=== PATIENT | female | born 1990 | race Caucasian/White ===

== ENCOUNTER 2018-12-29 11:40 | Observation (INO) | payer MEDICAID ==
[~2018-12-29] VITALS: Ht 152.4 cm; Wt 63.5 kg
[~2018-12-29 11:40] MED LIST: ACET-6134 PO; PREN-385 PO
[2018-12-29 11:44] VITALS: BP 104/59
== END 2018-12-29 18:35 | disposition home or self-care (01) ==
LOC: MED 11:40 → MLD 11:56
PROVIDERS: ADMIT Obstetrics & Gynecology; ATTEND Obstetrics & Gynecology
DX: O26.892 Other specified pregnancy related conditions, second trimester (principal); R10.9 Unspecified abdominal pain; Z3A.23 23 weeks gestation of pregnancy
CPT/HCPCS: 36415; 76815; 85379; 99281; G0378; Q0092

== ENCOUNTER 2019-04-15 22:30 | Inpatient (IN) | payer MEDICAID ==
[~2019-04-15] VITALS: Ht 152.4 cm; Wt 74.8 kg
[~2019-04-15 22:30] MED LIST changes: -ACET-6134 PO
[2019-04-15 22:47] VITALS: BP 113/65
[2019-04-15] MEDS ORDERED: TERBUTALINE 1 MG/ML VIAL SUBQ ONE (23:25)
[2019-04-15] MEDS: TERBUTALINE 1 MG/ML VIAL SUBQ SCH (23:32)
[2019-04-15] MEDS: LACTATED RINGERS 1,000 ML IV SCH (23:33)
[2019-04-16] MEDS ORDERED: TERBUTALINE 1 MG/ML VIAL SUBQ ONE (00:06)
[2019-04-16] MEDS: TERBUTALINE 1 MG/ML VIAL SUBQ SCH (00:09)
[2019-04-16] MEDS: TERBUTALINE 2.5 MG TAB PO SCH ×4 (04:00→16:00)
[2019-04-16] MEDS ORDERED: FERR325E14 PO (05:39)
[2019-04-16] MEDS: LACTATED RINGERS 1,000 ML IV SCH ×3 (07:47→23:08)
--- NOTE | 2019-04-16 08:11 | NUR ---
PATIENT HAS BEEN SCREENED AND CATEGORIZED LOW NUTRITION RISK. PATIENT WILL BE SEEN WITHIN 7 DAYS OF ADMISSION. 04/22/[address]
[2019-04-16] MEDS ORDERED: NALBUPHINE 10 MG/ML AMP IVP SCH (09:35)
[2019-04-16] MEDS ORDERED: NALBUPHINE 10 MG/ML AMP ONE ×2 (09:56→19:44)
[2019-04-16] MEDS ORDERED: SODIUM PHOSPHATE 118 ML ENEM RC PRN (12:40)
[2019-04-16 14:00] LABS: BASOPHILS % (AUTO) 0.1 % (0.0-2.0); HEMATOCRIT 34.7 % (36-48); HEMOGLOBIN 11.2 g/dL (12.0-16.0); LYMPHOCYTES # (AUTO) 1.2 K/uL (2.5-16.5); LYMPHOCYTES % (AUTO) 9.4 % (20.5-51.1); MEAN CORPUSCULAR HEMOGLOBIN 26 pg (27-31); MEAN CORPUSCULAR HGB CONC 32 g/dL (33-37); MEAN CORPUSCULAR VOLUME 81.8 fL (80-94); MONOCYTES # (AUTO) 0.7 K/uL (0.8-1.0); MONOCYTES % (AUTO) 5.4 % (1.7-9.3); NEUTROPHILS # (AUTO) 10.9 K/uL (1.8-7.7); NEUTROPHILS % (AUTO) 85.1 % (42.2-75.2); PLATELET COUNT (AUTO) 166 K/uL (140-450); RED BLOOD CELL COUNT(AUTO) 4.24 MIL/uL (4.20-5.40); WHITE BLOOD COUNT (AUTO) 12.8 K/uL (4.8-10.8)
[2019-04-16] MEDS: NALBUPHINE 10 MG/ML AMP IVP PRN (19:49)
[2019-04-17] MEDS ORDERED: NALBUPHINE 10 MG/ML AMP ONE ×2 (03:26→09:29)
[2019-04-17] MEDS: NALBUPHINE 10 MG/ML AMP IVP PRN ×2 (03:41→09:30)
[2019-04-17] MEDS: LACTATED RINGERS 1,000 ML IV SCH ×2 (08:23→14:48)
[2019-04-17] MEDS ORDERED: MORPHINE SULFATE 10 MG/ML VIAL IVP PRN (11:30)
[2019-04-17] MEDS ORDERED: MORPHINE SULFATE 10 MG/ML VIAL ONE (11:48)
[2019-04-17] MEDS ORDERED: ROPIVACAINE 0.2%/NS PREMIX 100 ML EPI ONE ×2 (13:18→23:04)
[2019-04-18] MEDS ORDERED: OXYTOCIN 20 UNITS/LR PREMIX 1,000 ML IV ONE (07:30)
[2019-04-18] MEDS: LACTATED RINGERS 1,000 ML IV SCH (07:43)
[2019-04-18] MEDS ORDERED: OXYTOCIN 20 UNITS in LACTATED RINGERS 1,000 ML IV SCH ×2 (08:15→14:59)
[2019-04-18] MEDS ORDERED: OXYTOCIN 10 UNITS/ML VIAL ONE (11:15)
[2019-04-18] MEDS ORDERED: ROPIVACAINE 0.2%/NS PREMIX 100 ML EPI ONE (11:37)
[2019-04-18] MEDS ORDERED: BISACODYL 5 MG TABEC PO PRN (15:00)
[2019-04-18] MEDS ORDERED: MEASLES, MUMPS, AND RUBELLA 1 VIAL SQVAC PRN (15:00)
[2019-04-18] MEDS ORDERED: ACETAMINOPHEN 325 MG TAB PO PRN (15:00)
[2019-04-18] MEDS ORDERED: IBUPROFEN 600 MG TAB PO PRN (15:00)
[2019-04-18] MEDS ORDERED: DOCUSATE SODIUM 100 MG GELCAP PO PRN (15:00)
[2019-04-19 08:17] LABS: BASOPHILS % (AUTO) 0.2 % (0.0-2.0); EOSINOPHILS # (AUTO) 0.1 K/uL (0-0.4); HEMATOCRIT 29.2 % (36-48); HEMOGLOBIN 9.7 g/dL (12.0-16.0); LYMPHOCYTES # (AUTO) 2.2 K/uL (2.5-16.5); LYMPHOCYTES % (AUTO) 20.6 % (20.5-51.1); MEAN CORPUSCULAR HEMOGLOBIN 27 pg (27-31); MEAN CORPUSCULAR HGB CONC 33 g/dL (33-37); MEAN CORPUSCULAR VOLUME 81.9 fL (80-94); MONOCYTES % (AUTO) 9.6 % (1.7-9.3); NEUTROPHILS # (AUTO) 7.2 K/uL (1.8-7.7); NEUTROPHILS % (AUTO) 68.6 % (42.2-75.2); PLATELET COUNT (AUTO) 140 K/uL (140-450); RED BLOOD CELL COUNT(AUTO) 3.57 MIL/uL (4.20-5.40); WHITE BLOOD COUNT (AUTO) 10.5 K/uL (4.8-10.8)
== END 2019-04-20 15:25 | disposition home or self-care (01) | DRG 560 ==
LOC: OBSVTOIN 22:30 → MLD 22:30 → MFCC 04-18 20:00
PROVIDERS: ADMIT Obstetrics & Gynecology; ATTEND Obstetrics & Gynecology
PROC: 10E0XZZ Delivery of Products of Conception, External Approach (ICD-10-PCS; principal; 2019-04-18)
PROC: 10907ZC Drainage of Amniotic Fluid, Therapeutic from Products of Conception, Via Natural or Artificial Opening (ICD-10-PCS; 2019-04-18)
PROC: 00HU33Z Insertion of Infusion Device into Spinal Canal, Percutaneous Approach (ICD-10-PCS; 2019-04-18)
PROC: 3E0R3BZ Introduction of Anesthetic Agent into Spinal Canal, Percutaneous Approach (ICD-10-PCS; 2019-04-18)
DX: O45.93 Premature separation of placenta, unspecified, third trimester (principal); Z37.0 Single live birth; Z3A.38 38 weeks gestation of pregnancy
CPT/HCPCS: 36415; 76815; 85025; 85379; C1758; J2270; J2300; J2590; J2795; J3105; J7120; Q0092

== ENCOUNTER 2021-05-17 10:21 | Observation (INO) | payer OTHER, SELFPAY ==
[~2021-05-17] VITALS: Ht 152.4 cm; Wt 71.7 kg
[~2021-05-17 10:21] MED LIST changes: +FERR325E14 PO
[2021-05-17 11:00] VITALS: BP 112/58
[2021-05-17] MEDS ORDERED: TERB2.5T6 PO (13:51)
[2021-05-17] MEDS ORDERED: TERBUTALINE 2.5 MG TAB ONE (13:55)
[2021-05-17] MEDS ORDERED: TERBUTALINE 2.5 MG TAB PO SCH (13:55)
== END 2021-05-17 15:40 | disposition home or self-care (01) ==
LOC: MLD 10:21
PROVIDERS: ADMIT Obstetrics & Gynecology; ATTEND Obstetrics & Gynecology
DX: O47.03 False labor before 37 completed weeks of gestation, third trimester (principal); Z20.822 Contact with and (suspected) exposure to COVID-19; Z3A.32 32 weeks gestation of pregnancy
CPT/HCPCS: 36415; 76805; 82731; 87426; G0378; G0379; Q0092; 59025; 81000

== ENCOUNTER 2021-05-27 10:15 | Observation (INO) | payer OTHER, SELFPAY ==
[~2021-05-27] VITALS: Ht 152.4 cm; Wt 72.6 kg
[~2021-05-27 10:15] MED LIST changes: +TERB2.5T6 PO
[2021-05-27] MEDS ORDERED: TERBUTALINE 1 MG/ML VIAL SUBQ ONE (11:52)
[2021-05-27] MEDS ORDERED: TERBUTALINE 1 MG/ML VIAL SUBQ SCH (12:05)
[2021-05-27] MEDS ORDERED: BETAMETH ACET/BETAMETH NA PH 30 MG/5 ML VIAL IM ONE (13:45)
[2021-05-27] MEDS: BETAMETH ACET/BETAMETH NA PH 30 MG/5 ML VIAL IM SCH (13:53)
[2021-05-27] MEDS: TERBUTALINE 2.5 MG TAB PO SCH ×2 (17:54→23:54)
[2021-05-27] MEDS ORDERED: ZOLPIDEM 5 MG TAB PO SCH (21:00)
[2021-05-28] MEDS ORDERED: BETAMETH ACET/BETAMETH NA PH 30 MG/5 ML VIAL IM ONE (01:47)
[2021-05-28] MEDS: BETAMETH ACET/BETAMETH NA PH 30 MG/5 ML VIAL IM SCH (01:58)
[2021-05-28] MEDS: TERBUTALINE 2.5 MG TAB PO SCH ×2 (05:57→12:01)
== END 2021-05-28 12:45 | disposition home or self-care (01) ==
LOC: MLD 10:15
PROVIDERS: ADMIT Obstetrics & Gynecology; ATTEND Obstetrics & Gynecology
DX: O60.03 Preterm labor without delivery, third trimester (principal); Z20.822 Contact with and (suspected) exposure to COVID-19; Z3A.33 33 weeks gestation of pregnancy
CPT/HCPCS: 36415; 59025; 76819; 82731; 87426; 96372; G0378; G0379; J0702; J3105; Q0092

== ENCOUNTER 2021-06-10 10:43 | Observation (INO) | payer OTHER, SELFPAY ==
[~2021-06-10] VITALS: Ht 152.4 cm; Wt 72.6 kg
[2021-06-10 11:40] VITALS: BP 106/66
[2021-06-10 12:09] LABS: BILIRUBIN,URINE NEGATIVE (NEGATIVE); BLOOD, URINE NEGATIVE (NEGATIVE); LEUKOCYTE ESTERASE ,URINE TRACE (NEGATIVE); UGLUCOSE 1+ (NEGATIVE)
[2021-06-10 12:31] LABS: APPEARANCE,URINE HAZY (CLEAR); NITRITE, URINE POSITIVE (NEGATIVE); RBC,URINE 0-5 /HPF (0-5); WBC,URINE 0-5 /HPF (0-5)
[2021-06-10 12:32] LABS: COLOR,URINE YELLOW (YELLOW)
[2021-06-10 12:33] LABS: CALCIUM OXALATE CRYSTALS,UR 0-10 /HPF (None Seen)
== END 2021-06-10 13:35 | disposition home or self-care (01) ==
LOC: MLD 10:43
PROVIDERS: ADMIT Obstetrics & Gynecology; ATTEND Obstetrics & Gynecology
DX: O62.9 Abnormality of forces of labor, unspecified (principal); Z3A.35 35 weeks gestation of pregnancy
CPT/HCPCS: 36415; 76819; 81001; 82731; G0378; Q0092; 59025

== ENCOUNTER 2021-06-24 11:37 | Observation (INO) | payer OTHER, SELFPAY ==
[~2021-06-24] VITALS: Ht 152.4 cm; Wt 76.2 kg
[2021-06-24] MEDS ORDERED: TERBUTALINE 1 MG/ML VIAL SUBQ ONE (12:45)
[2021-06-24 12:47] VITALS: BP 101/55
[2021-06-24] MEDS: TERBUTALINE 1 MG/ML VIAL SUBQ SCH ×2 (13:01→13:31)
[2021-06-24] MEDS ORDERED: ZOLPIDEM 5 MG TAB PO PRN (14:50)
[2021-06-24] MEDS: TERBUTALINE 2.5 MG TAB PO SCH ×2 (17:58→23:57)
[2021-06-25] MEDS ORDERED: TERBUTALINE 1 MG/ML VIAL SUBQ SCH (00:15)
[2021-06-25] MEDS ORDERED: NALBUPHINE 10 MG/ML AMP IVP PRN (00:15)
[2021-06-25] MEDS ORDERED: PROMETHAZINE 25 MG/ML VIAL IVP PRN (00:15)
[2021-06-25] MEDS ORDERED: LACTATED RINGERS 1,000 ML IV SCH (00:15)
[2021-06-25] MEDS ORDERED: TERBUTALINE 1 MG/ML VIAL SUBQ ONE (00:19)
[2021-06-25] MEDS ORDERED: NALBUPHINE 10 MG/ML AMP ONE (00:20)
[2021-06-25] MEDS ORDERED: PROMETHAZINE 25 MG/ML VIAL ONE (00:20)
[2021-06-25] MEDS: TERBUTALINE 2.5 MG TAB PO SCH (05:59)
== END 2021-06-25 15:35 | disposition home or self-care (01) ==
LOC: MLD 11:37
PROVIDERS: ADMIT Obstetrics & Gynecology; ATTEND Obstetrics & Gynecology
DX: O47.1 False labor at or after 37 completed weeks of gestation (principal); Z20.822 Contact with and (suspected) exposure to COVID-19; Z3A.37 37 weeks gestation of pregnancy; Z87.51 Personal history of pre-term labor
CPT/HCPCS: 59025; 76815; 81000; 87426; 96360; 96361; 96372; G0378; J2300; J2550; J3105; J7120; Q0092

== ENCOUNTER 2021-07-01 13:49 | Observation (INO) | payer OTHER, SELFPAY ==
[~2021-07-01] VITALS: Ht 152.4 cm; Wt 76.2 kg
[2021-07-01 14:19] VITALS: BP 123/60
[2021-07-06] MEDS ORDERED: FERR325E14 PO (13:47)
[2021-07-06] MEDS ORDERED: ACET-10509 PO (13:48)
[2021-07-06] MEDS ORDERED: CEPH-588 PO (13:49)
== END 2021-07-01 16:15 | disposition home or self-care (01) ==
LOC: MLD 13:49
PROVIDERS: ADMIT Obstetrics & Gynecology; ATTEND Obstetrics & Gynecology
DX: O47.1 False labor at or after 37 completed weeks of gestation (principal); Z20.822 Contact with and (suspected) exposure to COVID-19; Z3A.38 38 weeks gestation of pregnancy
CPT/HCPCS: 76815; 87426; G0378; G0379; Q0092